=== PATIENT | female | born 1965 | race Caucasian/White ===

== ENCOUNTER 2017-04-18 12:45 | Outpatient (CLI) | payer OTHER ==
--- NOTE | 2017-04-18 13:25 | DIAGNOSTIC IMAGING REPORT ---
PROCEDURE: XR CHEST 2 VIEW INDICATION: SOB TECHNIQUE: PA and lateral views. COMPARISON: None. FINDINGS: Lungs are clear. Heart and mediastinum are normal. Thorax is normal. IMPRESSION: 1. Negative chest.
== END 2017-04-18 23:00 ==
LOC: XR SRH 12:45
DX: R06.02 Shortness of breath (principal)